=== PATIENT | female | born 1990 | race Caucasian/White ===

== ENCOUNTER 2021-04-08 18:20 | Emergency (ER) | payer MEDICAID ==
[~2021-04-08] VITALS: Ht 157.5 cm; Wt 84.8 kg
[2021-04-08 19:00] VITALS: BP 129/86
--- NOTE | 2021-04-08 19:35 | NUR ---
SEEN AND EXAMINED BY PA
[2021-04-08] MEDS ORDERED: COROTSOL LEFT EAR (19:37)
[2021-04-08 19:56] VITALS: BP 129/86
--- NOTE | 2021-04-08 19:56 | NUR ---
Patient discharged with v/s stable. Written and verbal after care instructions given and explained. Patient alert, oriented and verbalized understanding of instructions. Ambulatory with steady gait. All questions addressed prior to discharge. ID band removed. Patient advised to follow up with PMD. Rx of CORTISPORIN OTIC SOLUTION given. Patient educated on indication of medication including possible reaction and side effects. Opportunity to ask questions provided and answered.
== END 2021-04-08 19:56 | disposition home or self-care (01) ==
LOC: MED 18:20
DX: H60.92 Unspecified otitis externa, left ear (principal); Z79.899 Other long term (current) drug therapy; Z88.1 Allergy status to other antibiotic agents
CPT/HCPCS: 99283

== ENCOUNTER 2022-10-31 21:23 | Emergency (ER) | payer MEDICAID ==
[~2022-10-31] VITALS: Ht 157.5 cm; Wt 81.6 kg
[~2022-10-31 21:23] MED LIST: COROTSOL LEFT EAR
[2022-10-31 21:49] VITALS: BP 145/92; PULSE 79; RESP 18; TEMP 98.4; O2SAT 99
[2022-10-31] MEDS ORDERED: AZITHROMYCIN 250 MG TAB PO ONE (23:00)
[2022-10-31] MEDS ORDERED: DIPH25TA53 PO (23:09)
[2022-10-31 23:23] VITALS: BP 145/92; PULSE 79; RESP 18; TEMP 98.4; O2SAT 99
--- NOTE | 2022-10-31 23:25 | NUR ---
Patient discharged with v/s stable. Written and verbal after care instructions given and explained. New rx benadryl. Patient verbalized understanding. Ambulatory with steady gait. All questions addressed prior to discharge. Advised to follow up with PMD.
== END 2022-10-31 23:25 | disposition home or self-care (01) ==
LOC: MED 21:23
DX: T78.40XA Allergy, unspecified, initial encounter (principal); T36.4X5A Adverse effect of tetracyclines, initial encounter; T49.0X5A Adverse effect of local antifungal, anti-infective and anti-inflammatory drugs, initial encounter; Z79.899 Other long term (current) drug therapy; Z88.1 Allergy status to other antibiotic agents; Y92.89 Other specified places as the place of occurrence of the external cause
CPT/HCPCS: 99283